=== PATIENT | male | born 1940 | race Caucasian/White ===

== ENCOUNTER 2020-06-26 00:14 | Inpatient (IN) | payer OTHER ==
[~2020-06-26] VITALS: Ht 190.5 cm; Wt 106.1 kg
[2020-06-26] MEDS ORDERED: PROTONIX 40 MG40 M1 PO (01:20)
[2020-06-26] MEDS ORDERED: MECLIZINE HCL25 MG PO (01:21)
[2020-06-26] MEDS ORDERED: NITROSTAT 0.40.4 MG SL (01:21)
[2020-06-26] MEDS ORDERED: CELEBREX400 MG PO (01:22)
[2020-06-26] MEDS ORDERED: FLOMAX 0.4 MG0.4 MG PO (01:22)
[2020-06-26] MEDS ORDERED: JANUVIA100 MG PO (01:22)
[2020-06-26] MEDS ORDERED: IMDUR ER TAB 3030 MG PO (01:23)
[2020-06-26] MEDS ORDERED: VITAMIN D21250 MCG PO (01:24)
[2020-06-26] MEDS ORDERED: NORVASC10 MG PO (01:26)
--- NOTE | 2020-06-26 01:39 | NUR ---
ON ADMISSION ASSESSMENT, PT STATED NO CURRENT CP, BUT THAT HE HAS "INTERMITTENT" CP FROM TIME TO TIME THAT CENTERS ON THE TOP OF HIS CHEST WITH NO RADIATION OTHER THAN ACROSS THE TOP OF HIS CHEST.
[2020-06-26 11:21] LABS: HEMOGLOBIN 14.6 gm/dl (14.0-17.5); RED BLOOD COUNT 5.19 M/UL (4.20-5.50); WHITE BLOOD COUNT 13.6 K/UL (4.5-11.0)
--- NOTE | 2020-06-26 18:24 | NUR ---
DR. CRADENAS AWARE OF CHEST PAIN/PRESSURE. NEW ORDERS NOTED.
[2020-06-27 01:10] LABS: HEMOGLOBIN 13.8 gm/dl (14.0-17.5); RED BLOOD COUNT 4.94 M/UL (4.20-5.50); WHITE BLOOD COUNT 10.8 K/UL (4.5-11.0)
[2020-06-28 06:17] LABS: HEMOGLOBIN 12.3 gm/dl (14.0-17.5); RED BLOOD COUNT 4.49 M/UL (4.20-5.50); WHITE BLOOD COUNT 9.9 K/UL (4.5-11.0)
--- NOTE | 2020-06-28 06:23 | NUR ---
0620- PT REFUSED FOR DRESSING TO BE REMOVED FROM PREVIOUS CARDIAC CATH ON 06-27-19. PT VERY ARGUMENATIVE WITH NURSING STAFF AT TIMES. EXPLAINED IMPORTANCE OF HEPARIN GTT TO PATIENT SEVERAL TIMES REGARDING CONTINOUS INFUSION. PT VERBALIZED UNDERSTANDING BUT AT TIMES REMAINED TO ARGUE WITH NURSING STAFF.
--- NOTE | 2020-06-28 13:44 | NUR ---
REPORT CALLED TO MARSHALL MARTÍNEZ ON PCU. PT GOT STENTS IN SURGERY AND WILL NOT BE COMING BACK TO [id number]
[2020-06-28 20:24] LABS: HEMOGLOBIN 12.7 gm/dl (14.0-17.5); RED BLOOD COUNT 4.62 M/UL (4.20-5.50); WHITE BLOOD COUNT 10.3 K/UL (4.5-11.0)
[2020-06-29 02:43] LABS: HEMOGLOBIN 12.3 gm/dl (14.0-17.5); RED BLOOD COUNT 4.47 M/UL (4.20-5.50); WHITE BLOOD COUNT 11.7 K/UL (4.5-11.0)
[2020-06-30 03:46] LABS: HEMOGLOBIN 12.1 gm/dl (14.0-17.5); RED BLOOD COUNT 4.36 M/UL (4.20-5.50); WHITE BLOOD COUNT 11.2 K/UL (4.5-11.0)
[2020-07-01 03:16] LABS: HEMOGLOBIN 11.6 gm/dl (14.0-17.5); RED BLOOD COUNT 4.25 M/UL (4.20-5.50); WHITE BLOOD COUNT 10.5 K/UL (4.5-11.0)
[2020-07-01] MEDS ORDERED: JANUVIA50 MG PO (11:31)
[2020-07-01] MEDS ORDERED: IMDUR ER TAB 6060 MG PO (11:31)
[2020-07-01] MEDS ORDERED: ASPIRIN EC81 MG PO (11:31)
[2020-07-01] MEDS ORDERED: ATORVASTATIN CA20 MG PO (11:31)
[2020-07-01] MEDS ORDERED: LOPRESSOR 25 MG25 MG PO (11:31)
[2020-07-01] MEDS ORDERED: BRILINTA 90 MG90 MG PO (11:31)
== END 2020-07-01 14:35 | disposition home or self-care (01) | DRG 247 ==
LOC: PROG CARE 00:14 → ER1 00:14 → M/S 01:28 → PROG CARE 01:28 → EDSTATUS 13:57 → PROG CARE 06-28 13:39 → M/S 06-28 13:39 → PROG CARE 06-28 13:39
PROVIDERS: Internal Medicine; Internal Medicine Interventional Cardiology; Physician Assistant Medical; Physician Assistant Surgical; ADMIT Internal Medicine
PROC: 4A023N7 Measurement of Cardiac Sampling and Pressure, Left Heart, Percutaneous Approach (ICD-10-PCS; principal; 2020-06-27)
PROC: B211YZZ Fluoroscopy of Multiple Coronary Arteries using Other Contrast (ICD-10-PCS; 2020-06-27)
PROC: 027035Z Dilation of Coronary Artery, One Artery with Two Drug-eluting Intraluminal Devices, Percutaneous Approach (ICD-10-PCS; 2020-06-28)
PROC: B215YZZ Fluoroscopy of Left Heart using Other Contrast (ICD-10-PCS; 2020-06-28)
DX: I21.4 Non-ST elevation (NSTEMI) myocardial infarction (principal); I13.0 Hypertensive heart and chronic kidney disease with heart failure and stage 1 through stage 4 chronic kidney disease, or unspecified chronic kidney disease; I50.22 Chronic systolic (congestive) heart failure; N17.9 Acute kidney failure, unspecified; Z20.822 Contact with and (suspected) exposure to COVID-19; I25.10 Atherosclerotic heart disease of native coronary artery without angina pectoris; E11.22 Type 2 diabetes mellitus with diabetic chronic kidney disease; N18.30 Chronic kidney disease, stage 3 unspecified; N40.0 Benign prostatic hyperplasia without lower urinary tract symptoms; Z79.899 Other long term (current) drug therapy; Z79.82 Long term (current) use of aspirin; I25.2 Old myocardial infarction; Z87.891 Personal history of nicotine dependence; Z79.01 Long term (current) use of anticoagulants; E11.65 Type 2 diabetes mellitus with hyperglycemia
CPT/HCPCS: ECHO; 36415; 80048; 80053; 80061; 82550; 82553; 82962; 83735; 83874; 84484; 85025; 85027; 85347; 85610; 85730; 93005; 93306; 94760; 99152; 99153; 99285; C1725; C1769; C1874; C1887; C9600; J0461; J1644; J2250; J2405; J3010; J7030; J7040; Q9965; U0002

== ENCOUNTER → 2020-07-07 | Outpatient (CLI) | payer OTHER ==
[~2020-07-07] MED LIST: ASPIRIN EC81 MG PO; ATORVASTATIN CA20 MG PO; BRILINTA 90 MG90 MG PO; CELEBREX400 MG PO; FLOMAX 0.4 MG0.4 MG PO; IMDUR ER TAB 3030 MG PO; IMDUR ER TAB 6060 MG PO; JANUVIA100 MG PO; JANUVIA50 MG PO; LOPRESSOR 25 MG25 MG PO; MECLIZINE HCL25 MG PO; NITROSTAT 0.40.4 MG SL; NORVASC10 MG PO; PROTONIX 40 MG40 M1 PO; VITAMIN D21250 MCG PO
== END ==
LOC: LAB 12:36
PROVIDERS: Internal Medicine
DX: N18.30 Chronic kidney disease, stage 3 unspecified (principal)
CPT/HCPCS: 36415; 80048